=== PATIENT | male | born 1975 | race Two or more races ===

== ENCOUNTER 2024-12-27 10:42 | Emergency (ER) | payer MEDICAID ==
[~2024-12-27] VITALS: Ht 193 cm; Wt 110.5 kg
[2024-12-27 11:02] VITALS: TEMP 36.9; O2SAT 98
[2024-12-27 16:15] VITALS: BP 137/89; PULSE 90; RESP 18
[2024-12-27] MEDS: KETOROLAC 30MG/ML VIAL IM ONE (16:15)
[2024-12-27] MEDS ORDERED: DICL100G58 TP (16:50)
== END 2024-12-27 18:15 | disposition home or self-care (01) ==
LOC: ER 10:42
DX: S83.91XA Sprain of unspecified site of right knee, initial encounter (principal); Z79.899 Other long term (current) drug therapy; Z98.890 Other specified postprocedural states; X58.XXXA Exposure to other specified factors, initial encounter; Y93.01 Activity, walking, marching and hiking; Y92.89 Other specified places as the place of occurrence of the external cause; Y99.8 Other external cause status
CPT/HCPCS: 73562; 96372; 99283; J1885; Z7610; L1830; 29505